=== PATIENT | male | born 1935 | race Caucasian/White ===

== ENCOUNTER 2017-01-25 | Inpatient (IN) | payer MEDICARE, MEDICAID ==
[~2017-01-25] VITALS: Ht 175.3 cm; Wt 82.3 kg
--- NOTE | ~2017-01-25 | OR ---
PATIENT'S NAME: PAULINA RAYGOZA [facility] AGE: 81 Y [address] ROOM: [place] [address] LOCATION: [facility] ADMIT DATE: 02/01/2017 OR/Procedure Report DISCHARGE DATE: FAMILY PHYSICIAN: Corbin Morales MD ATTENDING PHYSICIAN: VANIA MASON SURGEON: Vania Mason MD WINDOWS TECHNICAL SPECIALIST: Jeremy Odell and Aniceto Jaffe [employer]. DATE OF PROCEDURE: 02/01/2017 PREOPERATIVE DIAGNOSIS: Right knee arthrofibrosis. POSTOPERATIVE DIAGNOSIS: Right knee arthrofibrosis. PROCEDURE PERFORMED: Right knee arthrotomy with open lysis of adhesions and open lateral retinacular release. ANESTHESIA: Spinal plus periarticular local anesthesia (ropivacaine with epinephrine). DRAINS: None. SPECIMEN: Synovial fluid and synovial tissue for culture. Synovial tissue for histology. ESTIMATED BLOOD LOSS: Less than 10 mL. INDICATION FOR PROCEDURE: Mr. Raygoza is an 81-year-old male who underwent a primary right total knee arthroplasty in [address] [place] [address] Carrero. He struggled severely with range of motion postoperatively. He underwent a manipulation under anesthesia and subsequently an arthroscopic lysis of adhesions and a second manipulation under anesthesia. Despite this, he has developed severe progressive stiffness in his knee. Radiographs demonstrate that his components are well fixed and well aligned. Clinical examination demonstrates a severely limited flexion. He has had a negative workup for infection. Risks, benefits, limitations, and alternatives to this procedure have been thoroughly reviewed. The patient was given informed consent to revise one or more of his components (if necessary). I have emphasized that this procedure has no capacity to restore normal range of motion, but the patient states that he would be quite happy with even mild or moderate improvements in his range of motion. We have discussed the potential for infection, neurovascular complications, and recurrent stiffness, and I have emphasized the need for sustained frequent aggressive stretching in order to decrease the potential PATIENT'S NAME: PAULINA RAYGOZA [facility] AGE: 81 Y [address] ROOM: [place] [address] LOCATION: [facility] ADMIT DATE: 02/01/2017 OR/Procedure Report DISCHARGE DATE: FAMILY PHYSICIAN: Corbin Morales MD ATTENDING PHYSICIAN: VANIA MASON for recurrent stiffness. Of note, the patient has been evaluated elsewhere and told that he had significant fibrosis in his thigh (in addition to his intrinsic knee stiffness). DESCRIPTION OF PROCEDURE: The patient positioned supine after administration of regional anesthesia and prophylactic antibiotics. Examination under anesthesia demonstrated a 5-degree flexion contracture and 30 degrees of flexion. There was neutral alignment. There was a well-healed longitudinal midline scar. There was no erythema. There was no abnormal warmth. There was a very solid endpoint at 30 degrees of flexion. There was no varus or valgus instability. There was moderate quadriceps atrophy. There was no discrete mass in the thigh. After the right lower extremity had been prepped and draped and examined under anesthesia, the limb was exsanguinated with an Esmarch wrap, and the pneumatic tourniquet was inflated to 300 mmHg. The knee was approached through the preexisting longitudinal midline scar. There was extremely thin dermis and extremely thin subcutaneous adipose tissue. A medial parapatellar arthrotomy was performed. The joint capsule was diffusely markedly thickened. Specifically, there was approximately a 1 cm thick rind of fibrous tissue lining the entire joint cavity. In addition, there were dense adhesions between the posterior aspect of the rectus femoris tendon and the anterior femur immediately proximal to the anterior flange of the femoral component. The medial and lateral gutters were completely obliterated with thick fibrous tissue, and there was a large fibrous mass at the anterior aspect of the intercondylar notch. There was also dense fibrosis of the infrapatellar fat pad and severe patella infera. An extensive capsulectomy was performed using sharp dissection as well as electrocautery. The medial and lateral gutters and suprapatellar pouch were completely restored. An open lateral retinacular release was performed in order to further improve patella mobility. It should be noted that patella mobility prior to commencing the procedure was severely limited in all planes. After the above specified release of adhesions, there was no residual adherence between the extensor mechanism and the anterior femur. Unfortunately, there was severe tightness of the extensor mechanism, and this limited flexion beyond 60 degrees. There was virtually no elasticity within the quadriceps musculature. The incision was thoroughly irrigated with sterile saline containing bacitracin several times throughout the operation. The medial arthrotomy was closed with multiple simple interrupted #1 Vicryl. Subcutaneous tissues were re-irrigated and reapproximated with simple deep interrupted 0 Vicryl. The skin was closed with superficial buried interrupted PATIENT'S NAME: PAULINA RAYGOZA [facility] AGE: 81 Y [address] ROOM: [address] [address] LOCATION: [facility] ADMIT DATE: 02/01/2017 OR/Procedure Report DISCHARGE DATE: FAMILY PHYSICIAN: Corbin Morales MD ATTENDING PHYSICIAN: VANIA MASON 2-0 Vicryl followed by surgical karissa. The dressings consisted of Xeroform gauze followed by sterile gauze, ABD pads, and an Paramjit wrap. There were no complications. MD CELY SHULTZ/phong /[id number] d: 02/02/17 0452 t: 02/15/17 0752, OPERATIVE SUMMARY
--- NOTE | ~2017-01-25 | DS ---
PATIENT'S NAME: [facility] AGE: 82 Y [address] ROOM: [address] [address] LOCATION: [facility] ADMIT DATE: 02/01/2017 Discharge Summary DISCHARGE DATE: 02/03/2017 FAMILY PHYSICIAN: Corbin Morales MD ATTENDING PHYSICIAN: Vania Hoskins PRIMARY DIAGNOSIS: Right knee arthrofibrosis. SECONDARY DIAGNOSIS: None. PROCEDURE PERFORMED: Right knee arthrotomy with open lysis of adhesions and open lateral retinacular release. HISTORY: The patient is an 81-year-old male who presents with right knee arthrofibrosis and associated severely compromised activities of daily living. The patient has decided to proceed with right knee arthrotomy with open lysis of adhesions and open lateral retinacular release after having been thoroughly counseled regarding the risks, benefits, limitations and alternatives. Please refer to the outpatient clinic notes and admission history and physical for this patient. HOSPITAL COURSE: The patient underwent a right knee arthrotomy with open lysis of adhesions and open lateral retinacular release on 02/01/2017 without complications. Spinal plus periarticular local anesthesia was utilized. The patient received 24 hours of perioperative prophylactic antibiotics and remained hemodynamically stable, neurovascularly intact throughout the entire hospital course. The postoperative prophylactic deep venous thrombosis prophylaxis consisted of Xarelto, early mobilization and pneumatic compression devices. Daily physical therapy for gait training, transfer training range of motion and quadriceps isometric exercises were received. The patient progressed well in physical therapy. On the date of discharge, 02/03/2017, the incision at the knee was healing well and showed no signs of infection. DISPOSITION: Home. DISCHARGE ACTIVITY: The patient is to bear weight as tolerated with range of motion and quadriceps isometric exercises as instructed. The operative extremity is to be elevated at least 90% of the day. There is to be sterile 4x4 gauze dressings to the incision daily. Dr. Hoskins is to be notified immediately if there is any increased pain, fevers, chills erythema or drainage. The patient is to comply with gentle range of motion to right knee. DISCHARGE MEDICATIONS: 1. Xarelto 10 mg 1 tab p.o. daily for 12 days for postoperative DVT prophylaxis. PATIENT'S NAME: [facility] AGE: 82 Y [address] ROOM: [id number] [place], [place] [address] LOCATION: [facility] ADMIT DATE: 02/01/2017 Discharge Summary DISCHARGE DATE: 02/03/2017 FAMILY PHYSICIAN: Corbin Morales MD ATTENDING PHYSICIAN: Vania Hoskins 2. Hydromorphone 2 mg 1-2 tabs p.o. every 4 hours p.r.n. for pain. 3. He is then instructed to continue all his other preadmission medications as instructed by his Internal Medicine doctor. FOLLOWUP: Followup appointment is to be with Dr. Hoskins's office on 02/08/2017 for his initial postoperative evaluation with suture removal at that time. SADIA MARTINEZ PA-C FOR VANIA HOSKINS MD SMW/modl /[id number] d: 02/08/17 0543 t: 02/08/17 0911, DISCHARGE SUMMARY
[2017-01-25] MEDS ORDERED: UNITHROID125 MCG PO (12:33)
[2017-01-25] MEDS ORDERED: TRAZODONE HCL100 MG PO (12:34)
[2017-01-25] MEDS ORDERED: ZANTAC (NON-FO150 MG PO (12:34)
[2017-02-01] MEDS ORDERED: TYLENOL EXTRA500 MG PO (07:43)
[2017-02-01] MEDS ORDERED: VITAMIN D-32000 UNI1 PO (07:44)
[2017-02-01] MEDS ORDERED: VITAMIN C500 M1 PO (07:45)
[2017-02-01] MEDS ORDERED: MELATONIN3 MG PO (07:47)
[2017-02-01] MEDS ORDERED: ASPIR 8181 MG PO (07:49)
[2017-02-01] MEDS ORDERED: SALINE MIST44 ML NS (07:51)
[2017-02-01] MEDS ORDERED: PRILOSEC20 MG PO (07:52)
[2017-02-01] MEDS ORDERED: AMBIEN5 MG PO (07:54)
[2017-02-01] MEDS ORDERED: MILK OF MA400 MG/5 M PO (07:56)
--- NOTE | 2017-02-01 17:10 | NUR ---
Significant Event: PT ALERT AND ORIENTED. ARRIVED ON FLOOR AT 1430. POST OP VITALS CONT. 1ST HOURLY AT 1815. TYLENOL GIVEN AT 1700. ANCEF DUE AT 2100. NO PAIN AT THIS TIME. NO VOID SINCE ARRIVING. CSM GOOD. TAKES FLUIDS ANDFOOD WELL. DAUGHTER IN THE ROOM ICE TO KNEE Follow up:
--- NOTE | 2017-02-02 04:38 | NUR ---
POD#1 RIGHT KNEE W/TENDON RELEASE, INCISION CDI, GOOD CSMS, UP WITH 1 ASSIST/FWW/GAIT BELT TO THE BATHROOM, RIGHT FA PIV SALINE LOCKED, VS WNL, GOOD PO INTAKE/OUTPUT, PAIN CONTROLLED WITH DILAUDID LD@0230 AND SCHEDULED TYLENOL AND WILL REASSESS WITH AM DOSING. PLAN TO DC HOME ON DISCHARGE.
[2017-02-02 05:36] LABS: HEMATOCRIT 34.4 % (33.0-50.0); HEMOGLOBIN 11.4 g/dL (11.0-16.0)
--- NOTE | 2017-02-02 10:10 | NUR ---
1010 Introduced self/role to patient. Lives in [place] by himself but daughter lives a few doors down. He has no concerns about going home by himself. Not aware of any additional DME he would need. Added my name to his marker board. Will continue to follow.
--- NOTE | 2017-02-02 18:37 | NUR ---
Significant Event: Alert & oriented. CSM intact, +1 pedal pulse. VSS, afebrile, room air. Up with 1 assist, walker. Pain well controlled with Acetaminophen. R) forearm SL. Pleasant & cooperative with cares. Follow up: D/C ?
--- NOTE | 2017-02-03 04:15 | NUR ---
POD#2 RIGHT KNEE TENDON RELEASE, INCISION CDI WITH ORIGINAL SURGICAL DSG INTACT, GOOD CSMS, UP WITH 1 SBA/FWW/GAIT BELT TO THE BATHROOM. MODERATE INTAKE AND OUTPUT THIS SHIFT, NO BM THIS SHIFT, BUT WAS GIVEN MOM AT HS. RFA PIV SALINE LOCKED BUT CONTINUES ON IV ANTIBIOTICS UNTIL WOUND CULTURES COME BACK, PAIN MANAGED WITH SCHEDULED TYLENOL AND PRN DILAUDID, BUT HAS NOT HAD ANY DILAUDID ON THIS SHIFT. VS WNL WITH SBP LOW AND ASYMPTOMATIC. POSSIBLE DC HOME TODAY WITH FAMILY.
[2017-02-03] MEDS ORDERED: COLACE100 MG PO (10:50)
[2017-02-03] MEDS ORDERED: PEPCID20 MG PO (10:51)
[2017-02-03] MEDS ORDERED: MIRALAX17 GM PO (10:53)
[2017-02-03] MEDS ORDERED: XARELTO10 MG PO (10:57)
[2017-02-03] MEDS ORDERED: DILAUDID 2MG(HYD2 MG PO (10:58)
== END 2017-02-03 13:20 | disposition disaster alternative care site (69) | DRG 489 ==
LOC: GPOC → EDSTATUS 02-01 → G3N 02-01 06:44 → EDSTATUS 02-01 07:00 → GPOC 02-01 07:00 → G3N 02-01 14:29
PROVIDERS: ADMIT Orthopaedic Surgery
PROC: 0SNC0ZZ Release Right Knee Joint, Open Approach (ICD-10-PCS; principal; 2017-02-01)
DX: M24.661 Ankylosis, right knee (principal); I44.7 Left bundle-branch block, unspecified; F32.9 Major depressive disorder, single episode, unspecified; Z96.651 Presence of right artificial knee joint; E78.00 Pure hypercholesterolemia, unspecified; E03.9 Hypothyroidism, unspecified; M81.0 Age-related osteoporosis without current pathological fracture; K21.9 Gastro-esophageal reflux disease without esophagitis
CPT/HCPCS: J0690; J1100; J1885; J2001; J2250; J2405; J2795; J7120